=== PATIENT | male | born 1965 | race African-American/Black ===

== ENCOUNTER 2018-12-22 07:54 | Outpatient (CLI) | payer OTHER ==
--- NOTE | 2018-12-22 10:04 | RAD ---
LEFT HAND 2 VIEWS: HISTORY: Arthritis, M13.80. COMPARISON: None. 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 No acute fracture or malalignment. No erosions or periostitis. Mild degenerative disease of the thumb carpometacarpal joint. IMPRESSION: Low-grade degenerative change. POS: [facility]
--- NOTE | 2018-12-22 10:18 | RAD ---
RIGHT HAND 2 VIEWS: HISTORY: Pain. COMPARISON: None. FINDINGS: Mild degenerative disease of the distal radial ulnar joint. Mild degenerative disease of the thumb c arpometacarpal joint. No acute fracture or malalignment. Large subcortical cyst of the proximal pha lanx head small finger. There is associated degenerative change of the proximal interphalangeal join t of the small finger with joint space height loss as well as volar spur formation. IMPRESSION: Mild degenerative changes, greatest at the proximal interphalangeal joint small finger may reflect a prior injury. POS: [facility]
== END 2018-12-22 07:55 | disposition home or self-care (01) ==
LOC: BICRAD 07:54
PROVIDERS: ATTEND Orthopaedic Surgery
DX: M19.041 Primary osteoarthritis, right hand (principal); M18.12 Unilateral primary osteoarthritis of first carpometacarpal joint, left hand

== ENCOUNTER 2022-08-13 12:16 | Outpatient (CLI) | payer OTHER | END 2022-08-13 12:17 | disposition home or self-care (01) | LOC: ULT 12:16 | PROVIDERS: ATTEND Internal Medicine | DX: R31.29 Other microscopic hematuria (principal) | CPT/HCPCS: 76770 ==